=== PATIENT | male | born 1980 | race Caucasian/White ===

== ENCOUNTER 2024-07-26 16:16 | Emergency (ER) | payer SELFPAY ==
[~2024-07-26] VITALS: Ht 175.3 cm; Wt 103.4 kg
[2024-07-26] MEDS: SODIUM CHLORIDE 0.9% 1000ML 1,000 ML IV STA (17:47)
[2024-07-26 17:52] LABS: BASOPHILS % 0.4 % (0.0-1.0); EOSINOPHILS # (AUTO) 0.2 (0.0-0.4); EOSINOPHILS % 2.3 % (0.0-6.0); HEMATOCRIT 45.5 % (38.2-49.6); HEMOGLOBIN 13.2 g/dL (14.0-18.0); LYMPHOCYTES # (AUTO) 2.6 (1.0-3.2); LYMPHOCYTES % 24.7 % (18.0-39.1); MEAN CORPUSCULAR HEMOGLOBIN 19.1 pg (28-32); MEAN CORPUSCULAR VOLUME 65.8 fL (81-99); MONOCYTES # (AUTO) 0.5 (0.2-0.8); NEUTROPHILS % 67.3 % (38.7-80.0); PLATELET COUNT 267 x10e3/uL (140-360); RED BLOOD COUNT 6.92 x10e6/uL (4.3-5.7); RED CELL DISTRIBUTION WIDTH 18.3 % (11.7-14.4); WHITE BLOOD COUNT 10.43 x10e3/uL (4.8-10.8)
[2024-07-26 18:16] LABS: ALBUMIN 4.3 g/dL (3.5-5.0); ALBUMIN/GLOBULIN RATIO 1.3 (0.8-2.0); ANION GAP 17.8 mmol/L (8-16); BILIRUBIN,TOTAL 0.8 mg/dL (0.2-1.2); CALCIUM 10.2 mg/dL (8.4-10.2); CREATININE, SERUM 1.28 mg/dL (0.72-1.25); POTASSIUM 3.8 mmol/L (3.5-5.1); TOTAL PROTEIN 7.7 g/dL (6.5-8.1)
[2024-07-26 18:22] LABS: TROPONIN I 0.002 ng/mL (0-0.300)
[2024-07-26 19:38] VITALS: BP 149/109
[2024-07-26] MEDS: HYDRALAZINE HCL 20 MG/ML VIAL IV STA (19:38)
[2024-07-26 19:41] VITALS: PULSE 76; RESP 18; TEMP 98.1; O2SAT 98
== END 2024-07-26 19:50 | disposition home or self-care (01) ==
LOC: ER 16:45
DX: R06.02 Shortness of breath (principal); N28.9 Disorder of kidney and ureter, unspecified; R51.9 Headache, unspecified; R42 Dizziness and giddiness; H53.8 Other visual disturbances; I10 Essential (primary) hypertension; R94.31 Abnormal electrocardiogram [ECG] [EKG]
CPT/HCPCS: 36415; 70450; 71045; 80053; 82550; 83690; 83880; 84484; 85025; 93005; 99284; J0360; J7030